=== PATIENT | male | born 1950 | race Caucasian/White ===

== ENCOUNTER 2018-05-26 12:13 | Outpatient (CLI) | payer MEDICARE ==
--- NOTE | 2018-05-26 15:23 | MRI ---
MRI LUMBAR SPINE WITHOUT CONTRAST: Multiplanar, multisequential imaging of the lumbar spine obtained. INDICATION: Low back pain. FINDINGS: The lumbar vertebrae maintain height. There is mild posterior listhesis at L4-5 and a grade I shaw listhesis at L5-S1. Loss of disk space at both of these levels with degenerative disk signal changes . The disk spaces above L4 are preserved. No significant bulge or protrusion at L1-2, L2-3, or L3-4 levels. There is mild facet arthrosis at t hese levels; however, no central canal or foraminal stenosis. At L4-5, mild posterior listhesis is noted as described above. Mild diffuse disk bulge. Mild facet arthrosis. Mild central canal stenosis. There is right foraminal stenosis secondary to disk bulge a nd facet hypertrophy. At L5-S1, there is a grade I anterolisthesis. Broad-based disk bulge. Prominent facet hypertrophy. Mild central canal stenosis. Bilateral foraminal stenosis secondary to the listhesis, disk bulge, a nd facet hypertrophy. IMPRESSION: 1. Findings at L4-5 and L5-S1 with central canal and foraminal stenosis at these levels as described above. POS: [facility]
== END 2018-05-26 12:14 | disposition home or self-care (01) ==
LOC: BICMRI 12:13
PROVIDERS: ATTEND Physical Medicine & Rehabilitation
DX: M54.5 Low back pain (principal); M48.061 Spinal stenosis, lumbar region without neurogenic claudication; M48.07 Spinal stenosis, lumbosacral region
CPT/HCPCS: 72148